=== PATIENT | male | born 1980 | race Caucasian/White ===

== ENCOUNTER 2021-11-05 01:04 | Emergency (ER) | payer SELFPAY ==
[~2021-11-05 01:04] MED LIST: Metoclopramide 10 MG/2 ML SDV IVPUSH ONE
[2021-11-05] MEDS ORDERED: Ondansetron 4 MG Tab.DIS PO ONE (01:05)
[2021-11-05] MEDS ORDERED: Naloxone 2 MG/2 ML Syringe IVPUSH ONE (01:11)
[2021-11-05] MEDS ORDERED: LORazepam 2 MG/ML SDV IVPUSH ONE (01:28)
[2021-11-05] MEDS ORDERED: Sodium Chloride 0.9% 1,000 ML IV ONE (01:28)
[2021-11-05 01:53] LABS: ANION GAP 16.9 mEq/L (7-13); CHLORIDE,CL 104 mmol/L (98-107); SODIUM,NA 141 mmol/L (136-145)
[2021-11-05] MEDS ORDERED: Ondansetron 4 MG/2 ML SDV IVPUSH ONE (03:19)
[2021-11-05 03:52] LABS: AMPHETAMINES,URINE POSITIVE (NEGATIVE); BARBITURATES,URINE NEGATIVE (NEGATIVE); BENZODIAZEPINE,URINE POSITIVE (NEGATIVE); MDMA (ECSTASY), URINE POSITIVE (NEGATIVE); METHADONE,URINE NEGATIVE (NEGATIVE); METHAMPHETAMINES,URINE POSITIVE (NEGATIVE); OPIATES,URINE NEGATIVE (NEGATIVE); OXYCODONE,URINE NEGATIVE (NEGATIVE); PHENCYCLIDINE,URINE NEGATIVE (NEGATIVE); TCA,URINE NEGATIVE (NEGATIVE)
[2021-11-05] MEDS ORDERED: Promethazine 25 MG/ML SDV IM ONE (04:27)
[2021-11-05] MEDS ORDERED: Ondansetron 4 MG Tab.DIS ONE (04:31)
== END 2021-11-05 05:20 | disposition home or self-care (01) ==
LOC: DL.ED 01:04
DX: R11.2 Nausea with vomiting, unspecified (principal); F15.10 Other stimulant abuse, uncomplicated
CPT/HCPCS: 36415; 80053; 80305; 80307; 81001; 82150; 83605; 83690; 83735; 85025; 85651; 86140; 96372; 96374; 96375; 99284; A9270; J2060; J2405; J2550; J2765; J7030

== ENCOUNTER 2021-11-05 11:16 | Emergency (ER) | payer SELFPAY ==
[2021-11-05] MEDS ORDERED: Sodium Chloride 0.9% 1,000 ML IV ONE (11:28)
[2021-11-05] MEDS ORDERED: Ondansetron 4 MG/2 ML SDV IVPUSH ONE (11:28)
[2021-11-05 12:16] LABS: CHLORIDE,CL 104 mmol/L (98-107); SODIUM,NA 140 mmol/L (136-145)
[2021-11-05 12:26] LABS: ACETAMINOPHEN 0 ug/mL (10-30 (Therapeutic))
== END 2021-11-05 13:49 | disposition home or self-care (01) ==
LOC: DL.ED 11:16
DX: F15.10 Other stimulant abuse, uncomplicated (principal); R11.2 Nausea with vomiting, unspecified
CPT/HCPCS: 36415; 80053; 80143; 80179; 80307; 83605; 83735; 84484; 85025; 87040; 93005; 93010; 96374; 99283; 99285-25; J2405; J7030